=== PATIENT | female | born 1955 | race Two or more races ===

== ENCOUNTER → 2019-03-04 | Outpatient (CLI) | payer MEDICARE, OTHER ==
[2019-03-04 17:33] LABS: ABSOLUTE EOSINOPHILS # (AUTO) 0.1 10^3/uL (0.0-0.6); ABSOLUTE MONOCYTES (AUTO) 0.4 10^3/uL (0.1-1.4); ABSOLUTE NEUT (AUTO) 10.5 10^3/uL (1.7-8.2); BASOPHILS % (AUTO) 0.4 % (0-2); EOSINOPHILS % (AUTO) 0.4 % (0-6); HEMATOCRIT 43.9 % (36.0-47.0); HEMOGLOBIN 15.1 g/dL (12.0-15.5); LYMPHOCYTES % (AUTO) 15.3 % (13-45); MEAN CORPUSCULAR HEMOGLOBIN 30.3 pg (27.0-33.4); MEAN CORPUSCULAR HGB CONC 34.4 g/dL (32.0-36.0); MEAN CORPUSCULAR VOLUME 88 fl (80-97); PLATELET COUNT 281 10^3/uL (150-450); RED BLOOD COUNT 4.98 10^6/uL (3.72-5.28); RED CELL DISTRIBUTION WIDTH 14.5 % (11.5-14.0); SEGMENTED NEUTROPHILS % (AUTO) 80.9 % (42-78); TOTAL CELLS COUNTED % (AUTO) 100 %
[2019-03-04 17:38] LABS: APPEARANCE,URINE CLOUDY; BILIRUBIN,URINE NEGATIVE (NEGATIVE); CALCIUM OXALATE CRYSTALS,URINE MANY /HPF; GLUCOSE, URINE NEGATIVE (NEGATIVE); KETONES,URINE NEGATIVE (NEGATIVE); LEUKOCYTE ESTERASE,URINE NEGATIVE (NEGATIVE); NITRITE,URINE NEGATIVE (NEGATIVE); PROTEIN,URINE NEGATIVE (NEGATIVE); URINE SPECIFIC GRAVITY 1.026; UROBILINOGEN,URINE NEGATIVE mg/dL (<2.0)
[2019-03-04 17:41] LABS: COLOR,URINE YELLOW
[2019-03-04 17:51] LABS: ALANINE AMINOTRANSFERASE 16 U/L (9-52); ALBUMIN 4.3 g/dL (3.5-5.0); ALKALINE PHOSPHATASE 41 U/L (38-126); ANION GAP 8 (5-19); ASPARTATE AMINO TRANSFERASE 15 U/L (14-36); BILIRUBIN,DIRECT 0.2 mg/dL (0.0-0.4); BILIRUBIN,TOTAL 0.4 mg/dL (0.2-1.3); BLOOD UREA NITROGEN 24 mg/dL (7-20); C-REACTIVE PROTEIN 14.6 mg/L (<10.0); CALCIUM 9.7 mg/dL (8.4-10.2); CARBON DIOXIDE 23 mmol/L (22-30); CHLORIDE 107 mmol/L (98-107); GLUCOSE 113 mg/dL (75-110); POTASSIUM 4.6 mmol/L (3.6-5.0); SODIUM 138.3 mmol/L (137-145); TOTAL PROTEIN 8.3 g/dL (6.3-8.2)
--- NOTE | 2019-03-04 17:52 | RADIOLOGY REPORT (SQ) ---
EXAM DESCRIPTION: CHEST PA/LATERAL COMPLETED DATE/TIME: 03/04/2019 5:14 pm REASON FOR STUDY: CHEST PAIN COMPARISON: 01/22/2016 EXAM PARAMETERS: NUMBER OF VIEWS: two views TECHNIQUE: Digital Frontal and Lateral radiographic views of the chest acquired. RADIATION DOSE: NA LIMITATIONS: none FINDINGS: LUNGS AND PLEURA: No opacities, masses or pneumothorax. No pleural effusion. MEDIASTINUM AND HILAR STRUCTURES: No masses or contour abnormalities. HEART AND VASCULAR STRUCTURES: Heart normal size. No evidence for failure. BONES: No acute findings. HARDWARE: None in the chest. OTHER: No other significant finding. IMPRESSION: NO SIGNIFICANT RADIOGRAPHIC FINDING IN THE CHEST. TECHNICAL DOCUMENTATION: JOB ID: [id number] [employer]- All Rights Reserved Reading location - IP/workstation name: [email or web address]
--- NOTE | 2019-03-04 17:59 | EKG REPORT ---
SEVERITY:- OTHERWISE NORMAL ECG - SINUS RHYTHM BORDERLINE RIGHT AXIS DEVIATION : Confirmed by: Shahnaz Valladares 04-Mar-2019 17:58:21
[2019-03-04 18:09] LABS: ERYTHROCYTE SEDIMENTATION RATE 44 mm/hr (0-30)
== END ==
LOC: OD 16:16
PROVIDERS: ATTEND Family Medicine
DX: J01.91 Acute recurrent sinusitis, unspecified (principal); R50.9 Fever, unspecified; J02.0 Streptococcal pharyngitis; R07.9 Chest pain, unspecified
CPT/HCPCS: 36415; 71046; 80053; 81001; 85025; 85652; 86060; 86140; 87040; 93005; 93010

== ENCOUNTER → 2019-03-04 | Outpatient (CLI) | payer MEDICARE, OTHER ==
--- NOTE | 2019-03-04 20:12 | RADIOLOGY REPORT (SQ) ---
EXAM DESCRIPTION: CT SINUSES LIMITED WITHOUT IV CONTRAST COMPLETED DATE/TME: 03/04/2019 17:24 CLINICAL HISTORY: 63 years, Female, J01.91 ACUTE RECURRENT SINUSITIS, UNSPECIFIED COMPARISON: Prior study from 02/20/2016 TECHNIQUE: Noncontrast CT of the sinuses was performed. Coronal and sagittal reformations were created. Images stored on PACS. All CT scanners at this facility use dose modulation, iterative reconstruction, and/or weight based dosing when appropriate to reduce radiation dose to as low as reasonably achievable (ALARA). [facility]: Dose Right [facility]: CareDose [facility]: Dose Right [facility]: Teradose 4D [facility]: Genalyte LIMITATIONS: None. FINDINGS: Limited evaluation of the brain parenchyma reveals no suspicious findings. Globes and orbits show no suspicious abnormality. The visualized portions of the bilateral parotid and submandibular glands appear normal. The oropharynx and nasopharynx appear normal as well. The mandible is intact. Medial and lateral pterygoid plates are intact. The zygomatic arches are intact. The nasal bone is intact. The nasal septum is deviated towards the left. Paranasal sinuses are overall clear. The ostiomeatal units are widely patent bilaterally. Visualized mastoid air cells are overall clear as well. IMPRESSION: No CT evidence of sinusitis. TECHNICAL DOCUMENTATION: Quality ID # [id number]: Final reports with documentation of one or more dose reduction techniques (e.g., Automated exposure control, adjustment of the mA and/or kV according to patient size, use of iterative reconstruction technique) copyright 2011 [employer]- All Rights Reserved
== END ==
LOC: RAD 17:23
PROVIDERS: ATTEND Family Medicine
DX: J01.91 Acute recurrent sinusitis, unspecified (principal); R07.9 Chest pain, unspecified
CPT/HCPCS: 70486

== ENCOUNTER 2019-03-05 23:46 | Inpatient (IN) | payer MEDICARE, OTHER ==
[2019-03-05] MEDS ORDERED: FAMOTIDINE INJ/PF 20 MG/2 ML SDV IV ONE (23:53)
[2019-03-05] MEDS ORDERED: EPINEPHRINE INJ/PF 1 MG/1 ML AMPULE IM ONE (23:53)
[2019-03-05] MEDS ORDERED: METHYLPREDNISOLONE INJ 125 MG/2 ML SDV IV ONE (23:53)
[2019-03-05] MEDS ORDERED: DIPHENHYDRAMINE HCL 50 MG/ML VIAL IV ONE (23:53)
--- NOTE | 2019-03-05 23:57 | ER Document Report ---
ED Medical Screen (RME) - General Chief Complaint: Swelling of Tongue Stated Complaint: SWOLLEN TONGUE Time Seen by Provider: 03/05/19 23:52 Primary Care Provider: CRISTHIAN MADERA MD [Primary Care Provider] - Follow up as needed Notes: 63-year-old with new onset tongue and throat swelling x 2 hours. Symptoms worsening, having difficulty swallowing and talking. No history of angioedema, not on an GRACE inhibitor (takes Coreg), recently started on azithromycin. TRAVEL OUTSIDE OF THE [place] IN LAST 30 DAYS: No - Related Data Allergies/Adverse Reactions: No Known Allergies Allergy (Unverified 05/01/12 23:21) Past Medical History - Past Medical History Cardiac Medical History: Reports: Hx Hypertension Pulmonary Medical History: Reports: Hx Asthma, Hx COPD Denies: Hx Tuberculosis Neurological Medical History: Reports: Hx Migraine GI Medical History: Reports: Hx Gastroesophageal Reflux Disease Musculoskeltal Medical History: Reports Hx Arthritis Past Surgical History: Denies: Hx Pacemaker - Immunizations Hx Diphtheria, Pertussis, Tetanus Vaccination: Yes Physical Exam - HEENT Mouth/Lips: Angioedema - Very large swollen tongue, lips unremarkable Pharynx: Other - Difficult to visualize because of very large swollen tongue Course - Re-evaluation Re-evalutation: Patient with obvious very swollen tongue, can swallow but reports some difficulty, muffled voice. Upgraded to level 1. Giving epinephrine and meds, placed on monitor in room immediately. I have greeted and performed a rapid initial assessment of this patient. A comprehensive ED assessment and evaluation of the patient, analysis of test results and completion of the medical decision making process will be conducted by additional ED providers. Doctor's Discharge - Discharge Referrals: CRISTHIAN MADERA MD [Primary Care Provider] - Follow up as needed
[2019-03-06] MEDS ORDERED: TRANEXAMIC ACID INJ/PF 1,000 MG/10 ML SDV IV ONE ×2 (00:01→00:06)
[2019-03-06] MEDS ORDERED: NORMAL SALINE 250 ML IV PRN (00:06)
[2019-03-06 00:44] LABS: ABSOLUTE EOSINOPHILS # (AUTO) 0.3 10^3/uL (0.0-0.6); ABSOLUTE LYMPHOCYTES (AUTO) 6.6 10^3/uL (0.5-4.7); ABSOLUTE MONOCYTES (AUTO) 0.8 10^3/uL (0.1-1.4); ABSOLUTE NEUT (AUTO) 5.8 10^3/uL (1.7-8.2); BASOPHILS % (AUTO) 0.4 % (0-2); EOSINOPHILS % (AUTO) 1.9 % (0-6); HEMATOCRIT 41.2 % (36.0-47.0); HEMOGLOBIN 14.1 g/dL (12.0-15.5); LYMPHOCYTES % (AUTO) 48.5 % (13-45); MEAN CORPUSCULAR HGB CONC 34.1 g/dL (32.0-36.0); MEAN CORPUSCULAR VOLUME 88 fl (80-97); MONOCYTES % (AUTO) 6.1 % (3-13); PLATELET COUNT 272 10^3/uL (150-450); RED BLOOD COUNT 4.68 10^6/uL (3.72-5.28); RED CELL DISTRIBUTION WIDTH 14.5 % (11.5-14.0); SEGMENTED NEUTROPHILS % (AUTO) 43.1 % (42-78); TOTAL CELLS COUNTED % (AUTO) 100 %; WHITE BLOOD COUNT 13.6 10^3/uL (4.0-10.5)
[2019-03-06 00:54] LABS: ALANINE AMINOTRANSFERASE 19 U/L (9-52); ALBUMIN 3.4 g/dL (3.5-5.0); ALKALINE PHOSPHATASE 35 U/L (38-126); ANION GAP 6 (5-19); ASPARTATE AMINO TRANSFERASE 17 U/L (14-36); BILIRUBIN,DIRECT 0.2 mg/dL (0.0-0.4); BILIRUBIN,TOTAL 0.3 mg/dL (0.2-1.3); BLOOD UREA NITROGEN 22 mg/dL (7-20); CALCIUM 9.1 mg/dL (8.4-10.2); CARBON DIOXIDE 21 mmol/L (22-30); CHLORIDE 111 mmol/L (98-107); GLUCOSE 130 mg/dL (75-110); POTASSIUM 4.3 mmol/L (3.6-5.0); SODIUM 137.5 mmol/L (137-145); TOTAL PROTEIN 6.8 g/dL (6.3-8.2)
[2019-03-06 01:45] LABS: INTERNATIONAL RATION (INR) 0.97; PROTHROMBIN TIME 13.4 SEC (11.4-15.4)
[2019-03-06 01:46] LABS: PARTIAL THROMBOPLASTIN TIME 27.5 SEC (23.5-35.8)
[2019-03-06] MEDS ORDERED: NORMAL SALINE 1000 ML 1,000 ML IV ONE (02:48)
[2019-03-06] MEDS ORDERED: IPRATROPIUM/ALBUTEROL 0.5-2.5 MG/3 ML AMPUL NEB PRN (02:49)
[2019-03-06] MEDS ORDERED: ACETAMINOPHEN 650 MG SUPP.RECT PR PRN (02:49)
[2019-03-06] MEDS ORDERED: DIPHENHYDRAMINE HCL 50 MG/ML VIAL IV PRN (02:51)
[2019-03-06] MEDS ORDERED: EPINEPHRINE INJ/PF 1 MG/1 ML AMPULE IM PRN (02:52)
[2019-03-06] MEDS ORDERED: METOPROLOL TARTRATE PF/INJ 5 MG/5 ML SDV IV PRN (02:54)
--- NOTE | 2019-03-06 02:54 | ER Document Report ---
Entered by ELIN OLGUIN SCRIBE 03/06/19 0005 Acting as scribe for:CHAPARRO ALVAREZ DO ED Oral Problem - General Chief Complaint: Swelling of Tongue Stated Complaint: SWOLLEN TONGUE Time Seen by Provider: 03/05/19 23:52 Mode of Arrival: Ambulatory Information source: Patient Notes: 63-year-old female who presents to the emergency department today with complaints of tongue swelling. Patient states that about 2144 she noticed that her tongue was swelling while she was watching TV. Patient denies any new medication usage or anything that she can think that she could be reacting to other than starting Zithromax 1 week ago for strep throat. Patient states she had similar but much less significant tongue swelling about a week ago so she took Benadryl and it went down and she was never seen for this. Patient denies being on lisinopril or other GRACE or ARB. Patient did have intermittent episodes similar to this in the remote past as well. TRAVEL OUTSIDE OF THE [place] IN LAST 30 DAYS: No - Related Data Allergies/Adverse Reactions: No Known Allergies Allergy (Unverified 05/01/12 23:21) Past Medical History - General Information source: Patient - Social History Smoking Status: Former Smoker Cigarette use (# per day): No Frequency of alcohol use: None Drug Abuse: None Lives with: Family Family History: Reviewed & Not Pertinent - Past Medical History Cardiac Medical History: Reports: Hx Hypertension Pulmonary Medical History: Reports: Hx Asthma, Hx COPD Neurological Medical History: Reports: Hx Migraine GI Medical History: Reports: Hx Gastroesophageal Reflux Disease Musculoskeletal Medical History: Reports Hx Arthritis - Immunizations Hx Diphtheria, Pertussis, Tetanus Vaccination: Yes Hx Pneumococcal Vaccination: 08/02/12 Review of Systems - Review of Systems Constitutional: No symptoms reported EENT: See HPI, Difficulty swallowing, Other - tongue swelling Cardiovascular: No symptoms reported Respiratory: See HPI, Short of breath Gastrointestinal: No symptoms reported Genitourinary: No symptoms reported Female Genitourinary: No symptoms reported Musculoskeletal: No symptoms reported Skin: No symptoms reported Hematologic/Lymphatic: No symptoms reported Neurological/Psychological: No symptoms reported -: Yes All other systems reviewed and negative Physical Exam - Vital signs Vitals: Temp Pulse Resp BP Pulse Ox 98.7 F 74 28 H 152/59 H 100 03/05/19 23:51 03/05/19 23:51 03/05/19 23:51 03/05/19 23:51 03/05/19 23:51 Interpretation: Hypertensive, Tachypneic - Notes Notes: PHYSICAL EXAM GENERAL: Alert. Voice sounds somewhat muffled. Mildly anxious HEAD: Normocephalic, atraumatic. EYES: Pupils equal, round, and reactive to light. Extraocular movements intact. ENT: Oral mucosa moist, tongue midline and grossly swollen but symmetric. Small amount of swelling beneath tongue without concern of Mikel's angina. Some pooling of secretions, dabbing at mouth with a washcloth. NECK: Full range of motion. Supple. Trachea midline. LUNGS: Clear to auscultation bilaterally, no wheezes, rales, or rhonchi. No respiratory distress. No stridor. HEART: Regular rate and rhythm. No murmurs, gallops, or rubs. EXTREMITIES: Moves all 4 extremities spontaneously. NEUROLOGICAL: Alert and oriented x3. Muffled speech. PSYCH: Normal affect, normal mood. SKIN: Warm and dry. Course - Re-evaluation Re-evalutation: 03/06/19 00:20 Patient has received Pepcid, Benadryl, Solu-Medrol and epinephrine, she is also in the process of receiving TXA. FFP has been ordered for presumed angioedema. Patient is rechecked and her tongue looks the same however she states she feels like she is breathing significantly better. 03/06/19 00:48 Patient rechecked, voice is less muffled, states she is having less trouble breathing, no respiratory distress, tongue is unchanged. 03/06/19 01:20 CBC shows leukocytosis with white count of 13.6, no anemia, CMP shows elevated chloride at 111, low CO2 at 21, BUN elevated mildly at 22, glucose is nonfasting and is 130, cardiac enzymes negative, blood type is a positive, EKG does not show any ischemia. 03/06/19 02:50 Swelling continues to decrease, patient is not having any difficulty swallowing her secretions anymore. FFP is infusing. Discussed patient with Dr. Valerio, who agrees to place the patient in the ICU in observation status for angioedema. I have left a message for Dr. Lakhani from anesthesia on their cell phone. No answer when I called the call room. Nursing offset plate preparation supervisor is going to call Bill the [employer] to have him call me. 03/06/19 03:20 spoke with DENZEL Davey occupational health technician, she is aware of the patient. Can be reached at [phone]. - Vital Signs Vital signs: Temp Pulse Resp BP Pulse Ox 98 F 78 13 129/82 H 97 03/06/19 04:18 03/06/19 03:34 03/06/19 03:59 03/06/19 03:59 03/06/19 03:59 - Laboratory Result Diagrams: 03/06/19 00:24 03/06/19 00:24 Laboratory results interpreted by me: 03/06/19 03/06/19 00:24 00:24 WBC 13.6 H RDW 14.5 H Lymphocytes % 48.5 H Absolute Lymphocytes 6.6 H Chloride 111 H Carbon Dioxide 21 L BUN 22 H Glucose 130 H Alkaline Phosphatase 35 L Albumin 3.4 L - EKG Interpretation by Me Additional EKG results interpreted by me: 03/06/19 01:20 EKG shows sinus rhythm at a rate of 65, normal axis, normal intervals, no ST segment elevations or depressions, no T wave inversions per my interpretation. Critical Care Note - Critical Care Note Total time excluding time spent on procedures (mins): 55 Discharge - Discharge Clinical Impression: Angioedema Qualifiers: Encounter type: initial encounter Qualified Code(s): T78.3XXA - Angioneurotic edema, initial encounter Condition: Fair Disposition: ADMITTED INPATIENT Admitting Provider: Teodoro (Hospitalist) Unit Admitted: ICU I personally performed the services described in the documentation, reviewed and edited the documentation which was dictated to the scribe in my presence, and it accurately records my words and actions.
[2019-03-06] MEDS: HEPARIN SOD (PORCINE) 5,000 UNIT/ML 1 ML SYRINGE SUBCUT SCH ×3 (05:17→21:05)
--- NOTE | 2019-03-06 05:26 | PDOC H&P ---
History of Present Illness Admission Date/PCP: 03/06/19 02:49 CRISTHIAN MADERA MD Patient complains of: Tongue swelling History of Present Illness: WESLY CEJA is a 63 year old female with a past medical history of rheumatoid arthritis on Humira, hypertension and COPD. Patient presents 1 week after the onset of widespread [place] area with severe pruritus which has subsequently resolved but over the last 6 hours have noticed numbness to her mouth and 2 hours of swelling of her tongue prompting to take Benadryl and evaluation in the emergency room. She receives IV epinephrine, Solu-Medrol, Pepcid without significant improvement requiring FFP and Tranexamic acid. She improves without stridor and able to swallow oral secretions and referred to the hospitalist for admission. Patient denies known trigger but was recently started on azithromycin and medication with well-documented adverse reaction for angioedema. Past Medical History Cardiac Medical History: Reports: Hypertension Pulmonary Medical History: Reports: Asthma, Chronic Obstructive Pulmonary Disease (COPD) Denies: Tuberculosis Neurological Medical History: Reports: Migraine GI Medical History: Reports: Gastroesophageal Reflux Disease Musculoskeltal Medical History: Reports: Arthritis Past Surgical History Past Surgical History: Denies: Pacemaker Social History Information Source: Patient Smoking Status: Never Smoker Frequency of Alcohol Use: None Hx Recreational Drug Use: No Drugs: None Hx Prescription Drug Abuse: No - Advance Directive Resuscitation Status: Full Code Family History Family History: Hypertension, Other - No angioedema Parental Family History Reviewed: Yes Children Family History Reviewed: Yes Sibling(s) Family History Reviewed.: Yes Medication/Allergy Home Medications: Carvedilol Phosphate [Coreg Cr] 30 mg PO 05/01/12 Fluticasone/Salmeterol [Advair 250-50 Diskus 28 dose] 1 puff IH DAILY 05/01/12 Montelukast Sodium [Singulair] 10 mg PO 05/01/12 Tiotropium [place] [Spiriva Handihaler 18 mcg/dose (30 Dose)] 1 puff IH DAILY 05/01/12 Allergies/Adverse Reactions: No Known Allergies Allergy (Unverified 05/01/12 23:21) Review of Systems Constitutional: ABSENT: chills, fever(s), headache(s), weight gain, weight loss Eyes: ABSENT: visual disturbances Ears: ABSENT: hearing changes Cardiovascular: ABSENT: chest pain, dyspnea on exertion, edema, orthropnea, palpitations Respiratory: ABSENT: cough, hemoptysis Gastrointestinal: ABSENT: abdominal pain, constipation, diarrhea, hematemesis, hematochezia, nausea, vomiting Genitourinary: ABSENT: dysuria, hematuria Musculoskeletal: ABSENT: joint swelling Integumentary: ABSENT: rash, wounds Neurological: ABSENT: abnormal gait, abnormal speech, confusion, dizziness, focal weakness, syncope Psychiatric: ABSENT: anxiety, depression, homidical ideation, suicidal ideation Endocrine: ABSENT: cold intolerance, heat intolerance, polydipsia, polyuria Hematologic/Lymphatic: ABSENT: easy bleeding, easy bruising Physical Exam Vital Signs: Temp Pulse Resp BP Pulse Ox 98 F 78 13 129/82 H 97 03/06/19 04:18 03/06/19 03:34 03/06/19 03:59 03/06/19 03:59 03/06/19 03:59 Intake & Output 03/04/19 03/05/19 03/06/19 11:59 11:59 11:59 Intake Total 361 Balance 361 Weight 84.1 kg General appearance: PRESENT: no acute distress, well-developed, well-nourished Head exam: PRESENT: atraumatic, normocephalic Eye exam: PRESENT: conjunctiva pink, EOMI, PERRLA. ABSENT: scleral icterus Ear exam: PRESENT: normal external ear exam Mouth exam: PRESENT: moist, tongue midline Neck exam: ABSENT: carotid bruit, JVD, lymphadenopathy, thyromegaly Respiratory exam: PRESENT: clear to auscultation jovanny. ABSENT: rales, rhonchi, wheezes Cardiovascular exam: PRESENT: RRR. ABSENT: diastolic murmur, rubs, systolic mu rmur Pulses: PRESENT: normal dorsalis pedis pul Vascular exam: PRESENT: normal capillary refill GI/Abdominal exam: PRESENT: normal bowel sounds, soft. ABSENT: distended, guarding, mass, organolmegaly, rebound, tenderness Rectal exam: PRESENT: deferred Extremities exam: PRESENT: full ROM. ABSENT: calf tenderness, clubbing, pedal edema Neurological exam: PRESENT: alert, awake, oriented to person, oriented to place, oriented to time, oriented to situation, CN II-XII grossly intact. ABSENT: motor sensory deficit Psychiatric exam: PRESENT: appropriate affect, normal mood. ABSENT: homicidal ideation, suicidal ideation Skin exam: PRESENT: dry, intact, warm. ABSENT: cyanosis, rash Results Laboratory Results: 03/06/19 00:24 03/06/19 00:24 03/06/19 03/06/19 03/06/19 00:24 00:24 00:24 WBC 13.6 H RBC 4.68 Hgb 14.1 Hct 41.2 MCV 88 MCH 30.0 MCHC 34.1 RDW 14.5 H Plt Count 272 Seg Neutrophils % 43.1 Lymphocytes % 48.5 H Monocytes % 6.1 Eosinophils % 1.9 Basophils % 0.4 Absolute Neutrophils 5.8 Absolute Lymphocytes 6.6 H Absolute Monocytes 0.8 Absolute Eosinophils 0.3 Absolute Basophils 0.0 Sodium 137.5 Potassium 4.3 Chloride 111 H Carbon Dioxide 21 L Anion Gap 6 BUN 22 H Creatinine 0.74 Est GFR ( Amer) > 60 Est GFR (Non-Af Amer) > 60 Glucose 130 H Calcium 9.1 Total Bilirubin 0.3 AST 17 ALT 19 Alkaline Phosphatase 35 L Total Protein 6.8 Albumin 3.4 L Blood Type A POSITIVE 03/06/19 00:24 Troponin I < 0.012 Assessment and Plan - Diagnosis (1) Angioedema Qualifiers: Encounter type: initial encounter Qualified Code(s): T78.3XXA - Angioneurotic edema, initial encounter Is this a current diagnosis for this admission?: Yes Plan: Likely allergic cause of angioedema following exposure to azithromycin. Patient education for avoidance, continue observation for rebound in addition to Benadryl, glucocorticoid, epinephrine as needed - Time Time Spent with patient: 35 or more minutes - Inpatient Certification Medical Necessity: Need Close Monitoring Due to Risk of Patient Decompensation
[2019-03-06] MEDS ORDERED: METHYLPREDNISOLONE INJ 125 MG/2 ML SDV IV SCH ×2 (06:00→14:00)
[2019-03-06] MEDS: FAMOTIDINE INJ/PF 20 MG/2 ML SDV IV SCH ×2 (09:51→21:06)
[2019-03-06] MEDS ORDERED: PHARMACY COMMUNICATION ORDER MC NR (11:15)
[2019-03-06] MEDS: METHYLPREDNISOLONE INJ 40 MG/1 ML SDV IV SCH ×2 (13:11→21:06)
--- NOTE | 2019-03-06 13:15 | EKG REPORT ---
SEVERITY:- BORDERLINE ECG - SINUS RHYTHM PROBABLE LEFT ATRIAL ABNORMALITY BORDERLINE RIGHT AXIS DEVIATION : Confirmed by: Shahnaz Valladares 06-Mar-2019 13:15:01
[2019-03-06 18:37] VITALS: BP 137/64
[2019-03-06] MEDS ORDERED: ADVAIR IH SCH (22:00)
[2019-03-07] MEDS ORDERED: SPIRIVA IH SCH (10:00)
--- NOTE | 2019-03-07 16:39 | Left Against Medical Advice ---
Against Medical Advice Admission Date/Time: 03/06/19 02:49 Primary Care Provider: CRISTHIAN MADERA MD Date of Patient Emigration: 03/06/19 - Diagnosis: (1) Angioedema Is this a current diagnosis for this admission?: Yes - Summary: Summary: Please see Admission and Progress Notes as well. WESLY CEJA is a 63 F, who LEFT AGAINST MEDICAL ADVICE. The Patient was admitted on 03/06/19 02:49. Patient left AMA on the same day of discharge. She was seen on morning rounds yesterday and explained the plan of care including continuing steroids for yesterday. Her home meds were also resumed. She expressed she wanted to be go home and says she does not really like staying in hospitals. She was assured and advised against the risks of going AMA and she decided to stay yesterday. Also discussed with Dr. Madera that she was on clindamycin not azithromycin, that her losartan was also recently stopped. Apparently patient left AMA later last night. Noted nursing note that she left AMA around 9:30 pm last night and that home energy auditor was made aware.
== END 2019-03-06 21:38 | disposition left against medical advice (07) | DRG 916 ==
LOC: ER 23:46 → EH 03-06 02:49 → ICU 03-06 04:50
PROVIDERS: ADMIT Internal Medicine; ATTEND Internal Medicine
DX: T78.3XXA Angioneurotic edema, initial encounter (principal); M06.9 Rheumatoid arthritis, unspecified; I10 Essential (primary) hypertension; K21.9 Gastro-esophageal reflux disease without esophagitis; M19.90 Unspecified osteoarthritis, unspecified site; T36.8X5A Adverse effect of other systemic antibiotics, initial encounter; Z79.899 Other long term (current) drug therapy
CPT/HCPCS: 36415; 36430; 70486; 71046; 80053; 81001; 84484; 85025; 85610; 85652; 85730; 86060; 86140; 86160; 86161; 86900; 86901; 87040; 93005; 93010; 96372; 96374; 96375; 99291; J0171; J1200; J1644; J2920; J2930; J3490; J7030; P9017; S0028

== ENCOUNTER → 2019-06-11 | Outpatient (CLI) | payer MEDICARE, OTHER ==
--- NOTE | 2019-06-11 17:06 | RADIOLOGY REPORT (SQ) ---
EXAM DESCRIPTION: CHEST PA/LATERAL COMPLETED DATE/TIME: 06/11/2019 4:54 pm REASON FOR STUDY: PNEUMONIA, UNSPECIFIED COMPARISON: 03/04/2019 EXAM PARAMETERS: NUMBER OF VIEWS: two views TECHNIQUE: Digital Frontal and Lateral radiographic views of the chest acquired. RADIATION DOSE: NA LIMITATIONS: none FINDINGS: LUNGS AND PLEURA: No opacities, masses or pneumothorax. No pleural effusion. MEDIASTINUM AND HILAR STRUCTURES: No masses or contour abnormalities. HEART AND VASCULAR STRUCTURES: Heart normal size. No evidence for failure. BONES: No acute findings. HARDWARE: None in the chest. OTHER: No other significant finding. IMPRESSION: NO SIGNIFICANT RADIOGRAPHIC FINDING IN THE CHEST. TECHNICAL DOCUMENTATION: JOB ID: [id number] [employer]- All Rights Reserved Reading location - IP/workstation name: [email or web address]
[2019-06-11 17:43] LABS: ABSOLUTE EOSINOPHILS # (AUTO) 0.5 10^3/uL (0.0-0.6); ABSOLUTE LYMPHOCYTES (AUTO) 4.3 10^3/uL (0.5-4.7); ABSOLUTE MONOCYTES (AUTO) 0.8 10^3/uL (0.1-1.4); ABSOLUTE NEUT (AUTO) 4.4 10^3/uL (1.7-8.2); BASOPHILS % (AUTO) 0.4 % (0-2); EOSINOPHILS % (AUTO) 4.7 % (0-6); HEMATOCRIT 42.2 % (36.0-47.0); HEMOGLOBIN 14.1 g/dL (12.0-15.5); LYMPHOCYTES % (AUTO) 43.3 % (13-45); MEAN CORPUSCULAR HEMOGLOBIN 29.3 pg (27.0-33.4); MEAN CORPUSCULAR HGB CONC 33.5 g/dL (32.0-36.0); MEAN CORPUSCULAR VOLUME 88 fl (80-97); MONOCYTES % (AUTO) 7.8 % (3-13); PLATELET COUNT 294 10^3/uL (150-450); RED BLOOD COUNT 4.82 10^6/uL (3.72-5.28); RED CELL DISTRIBUTION WIDTH 14.2 % (11.5-14.0); SEGMENTED NEUTROPHILS % (AUTO) 43.8 % (42-78); TOTAL CELLS COUNTED % (AUTO) 100 %
[2019-06-11 18:09] LABS: ALANINE AMINOTRANSFERASE 24 U/L (9-52); ALBUMIN 4.1 g/dL (3.5-5.0); ALKALINE PHOSPHATASE 32 U/L (38-126); ANION GAP 6 (5-19); ASPARTATE AMINO TRANSFERASE 27 U/L (14-36); BILIRUBIN,DIRECT 0.3 mg/dL (0.0-0.4); BILIRUBIN,TOTAL 0.5 mg/dL (0.2-1.3); BLOOD UREA NITROGEN 18 mg/dL (7-20); CALCIUM 9.3 mg/dL (8.4-10.2); CARBON DIOXIDE 26 mmol/L (22-30); CHLORIDE 106 mmol/L (98-107); GLUCOSE 97 mg/dL (75-110); POTASSIUM 4.2 mmol/L (3.6-5.0); TOTAL PROTEIN 7.7 g/dL (6.3-8.2)
== END ==
LOC: OD 16:06
PROVIDERS: ATTEND Family Medicine
DX: J18.9 Pneumonia, unspecified organism (principal)
CPT/HCPCS: 36415; 71046; 80053; 85025; 87040

== ENCOUNTER → 2019-07-21 | Outpatient (CLI) | payer MEDICARE, OTHER ==
--- NOTE | 2019-07-21 14:39 | RADIOLOGY REPORT (SQ) ---
EXAM DESCRIPTION: CT FACIAL AREA WITHOUT COMPLETED DATE/TIME: 07/21/2019 2:22 pm REASON FOR STUDY: J01.00 ACUTE MAXILLARY SINUSITIS, UNSPECIFIED J01.00 ACUTE MAXILLARY SINUSITIS, U NSPECIFIED COMPARISON: None. TECHNIQUE: Noncontrasted images through the facial bones and orbits windowed for bone and soft tissu e. Additional coronal and sagittal reconstructed images reviewed. All images stored on PACS. All CT scanners at this facility use dose modulation, iterative reconstruction, and/or weight based d osing when appropriate to reduce radiation dose to as low as reasonably achievable (ALARA). [facility]: Dose Right [facility]: CareDose [facility]: Dose Right [facility]: Teradose 4D [facility]: [employer] RADIATION DOSE: mGy. LIMITATIONS: None. FINDINGS: FACIAL BONES: No fracture or bone lesion. ORBITS: Intact. No fracture. Symmetric intact globes and retroorbital soft tissues. PARANASAL SINUSES: Clear. No significant mucosal thickening, mass or fluid. No nasal polyps. Both o stiomeatal units appear occluded. SOFT TISSUES: No mass or edema. INFERIOR BRAIN: Limited view. No acute findings. OTHER: No other significant finding. IMPRESSION: No mucosal thickening or air-fluid levels. Both ostiomeatal units appear occluded. TECHNICAL DOCUMENTATION: JOB ID: [id number] Quality ID # [id number]: Final reports with documentation of one or more dose reduction techniques (e.g., Au tomated exposure control, adjustment of the mA and/or kV according to patient size, use of iterative reconstruction technique) 2010 [employer]- All Rights Reserved Reading location - IP/workstation name: [email or web address]
== END ==
LOC: RAD 14:08
PROVIDERS: ATTEND Family Medicine
DX: J01.00 Acute maxillary sinusitis, unspecified (principal)
CPT/HCPCS: 70486

== ENCOUNTER → 2019-11-05 | Outpatient (CLI) | payer MEDICARE, OTHER ==
--- NOTE | 2019-11-05 16:41 | RADIOLOGY REPORT (SQ) ---
EXAM DESCRIPTION: MRI LUMBAR SPINE WITHOUT COMPLETED DATE/TIME: 11/05/2019 4:20 pm REASON FOR STUDY: M51.16 M51.16 INTERVERTEBRAL DISC DISORDERS W RADICULOPATHY, LUMBAR COMPARISON: 07/12/2015 TECHNIQUE: Sagittal and Axial imaging includes T1, T2, STIR and gradient echo sequences. Coronal T2/ HASTE imaging. LIMITATIONS: None. FINDINGS: VISUALIZED UPPER ABDOMEN: Limited evaluation. No acute or suspicious findings suggested. SEGMENTATION: No transitional anatomy. The lowest well-developed disc space is labeled L5-S1. ALIGNMENT: Anatomic. VERTEBRAE: Intact. BONE MARROW: Marrow signal is normal. There is a single lipoma in the body of L2. DISC SIGNAL: Loss of normal water signal throughout the lumbar spine consistent with desiccation. Di sc heights are well maintained. POSTERIOR ELEMENTS: Generally intact. No pars defect evident. HARDWARE: None in the spine. CORD AND CONUS: Normal in size and signal intensity. Conus at the appropriate level. SOFT TISSUES: No aortic aneurysm seen. No bulky retroperitoneal adenopathy or mass. No paraspinal mas s or fluid. L1-L2: No significant spinal stenosis or exit foraminal stenosis. L2-L3: No significant spinal stenosis or exit foraminal stenosis. L3-L4: Broad-based disc/ osteophyte complex with facet arthropathy. Mild bilateral foraminal narrowi ng. L4-L5: Broad-based disc/ osteophyte complex with facet arthropathy. This results in moderate central canal narrowing. Mild asymmetric narrowing of the right neural foramina. L5-S1: There is broad-based annular disc bulging. No significant central stenosis. There is bilater al moderate lateral recess stenosis. LOWER THORACIC: Incompletely imaged. No stenosis seen. SACRUM: Visualized upper sacrum intact. OTHER: No other significant findings. IMPRESSION: 1. Disc/osteophyte complex at L3-L4 with mild bilateral foraminal narrowing. 2. Broad-based disc/ osteophyte complex at L4-5. There is bilateral facet arthropathy. This result s in moderate central canal narrowing in asymmetric narrowing of the right neural foramina. 3. Moderate bilateral lateral recess stenosis at L5-S1. TECHNICAL DOCUMENTATION: JOB ID: [id number]- All Rights Reserved Reading location - IP/workstation name: [email or web address]
== END ==
LOC: RAD 15:14
PROVIDERS: ATTEND Family Medicine
DX: M51.16 Intervertebral disc disorders with radiculopathy, lumbar region (principal); M48.07 Spinal stenosis, lumbosacral region
CPT/HCPCS: 72148

== ENCOUNTER → 2020-01-26 | Outpatient (CLI) | payer MEDICARE, OTHER ==
[2020-01-26 16:12] LABS: URINE AMPHETAMINES SCREEN NEGATIVE; URINE BARBITURATES SCREEN NEGATIVE; URINE BENZODIAZEPINES SCREEN NEGATIVE; URINE COCAINE SCREEN NEGATIVE; URINE MARIJUANA (THC) SCREEN NEGATIVE; URINE METHADONE SCREEN NEGATIVE; URINE PHENCYCLIDINE SCREEN NEGATIVE
--- NOTE | 2020-01-26 16:22 | RADIOLOGY REPORT (SQ) ---
EXAM DESCRIPTION: RIBS RIGHT W/PA CHEST COMPLETED DATE/TIME: 01/26/2020 3:59 pm REASON FOR STUDY: FALL Z79.891 EDITOR INDEX (CURRENT) USE OF OPIATE ANALGESIC COMPARISON: None. TECHNIQUE: Frontal view of the chest and additional views of the right ribs acquired. NUMBER OF VIEWS: Five view. LIMITATIONS: None. FINDINGS: FRONTAL CXR: No pneumothorax. No pleural effusion. No atelectasis or infiltrates. RIBS: No displaced rib fractures. No lytic or blastic bony lesions. OTHER: No other significant finding. IMPRESSION: NO PNEUMOTHORAX. NO DISPLACED RIB FRACTURES. COMMENT: SITE OF TRAUMA/COMPLAINT MARKED/STAMP COMPLETED: YES. TECHNICAL DOCUMENTATION: JOB ID: [id number] 2010 [employer]- All Rights Reserved Reading location - IP/workstation name: [email or web address]
--- NOTE | 2020-01-26 16:23 | RADIOLOGY REPORT (SQ) ---
EXAM DESCRIPTION: FACIAL BONES COMPLETED DATE/TIME: 01/26/2020 3:59 pm REASON FOR STUDY: FALL Z79.891 [employer]OPER TRADING [employer]S (CURRENT) USE OF OPIATE ANALGESIC COMPARISON: None. NUMBER OF VIEWS: Three view. TECHNIQUE: Images of the facial bones acquired. LIMITATIONS: None. FINDINGS: ORBITS: No fracture. No foreign body. SINUSES: No mucosal thickening. No air fluid levels. FACIAL BONES: No fracture. OTHER: No other significant finding. IMPRESSION: NO FOREIGN BODY OR FRACTURE OF THE FACIAL BONES. TECHNICAL DOCUMENTATION: JOB ID: [id number] 2010 [employer]- All Rights Reserved Reading location - IP/workstation name: [email or web address]
== END ==
LOC: OD 14:38
PROVIDERS: ATTEND Family Medicine
DX: Z04.3 Encounter for examination and observation following other accident (principal); W01.198A Fall on same level from slipping, tripping and stumbling with subsequent striking against other object, initial encounter; Z51.81 Encounter for therapeutic drug level monitoring; Z79.891 Long term (current) use of opiate analgesic
CPT/HCPCS: 70150; 80307

== ENCOUNTER → 2020-01-26 | Outpatient (CLI) | payer MEDICARE, OTHER ==
--- NOTE | 2020-01-26 16:24 | RADIOLOGY REPORT (SQ) ---
EXAM DESCRIPTION: L SPINE FLEX/EXT ONLY COMPLETED DATE/TIME: 01/26/2020 3:59 pm REASON FOR STUDY: LUMBAR STENOSIS WITH NEUROGENIC CLAUDICATION M48.062 SPINAL STENOSIS, LUMBAR SHEERE ON WITH NEUROGENIC JOSE COMPARISON: None. NUMBER OF VIEWS: Two view. TECHNIQUE: Lateral views of the lumbar spine with flexion and extension. LIMITATIONS: None. FINDINGS: MINERALIZATION: Normal. SEGMENTATION: Normal. No transitional anatomy. ALIGNMENT: Minimal L3-4 and L4-5 grade 1 listhesis. FLEXION/EXTENSION: No abnormal motion. VERTEBRAE: Maintained height. No fracture or worrisome bone lesion. DISCS: Disc space narrowing at the lowest 3 levels with mild osteophytes. POSTERIOR ELEMENTS: Pedicles and facets are intact. No pars defect or posterior arch defects. HARDWARE: None in the spine. OTHER: Dense aortic calcification without gross aneurysm detected. IMPRESSION: Spondylosis. No abnormal motion. NO INSTABILITY ON FLEXION/EXTENSION. TECHNICAL DOCUMENTATION: JOB ID: [id number] 2010 [employer]- All Rights Reserved Reading location - IP/workstation name: [email or web address]
--- NOTE | 2020-01-26 16:25 | RADIOLOGY REPORT (SQ) ---
EXAM DESCRIPTION: LUMBAR SPINE 2 VIEWS COMPLETED DATE/TIME: 01/26/2020 3:59 pm REASON FOR STUDY: LUMBAR STENOSIS WITH NEUROGENIC CLAUDICATION M48.062 SPINAL STENOSIS, LUMBAR SHEREE ON WITH NEUROGENIC JOSE COMPARISON: None. NUMBER OF VIEWS: Two views. TECHNIQUE: AP and lateral radiographic images acquired of the lumbar spine with the patient position ed upright. LIMITATIONS: None. FINDINGS: MINERALIZATION: Normal. SEGMENTATION: Normal. No transitional anatomy. ALIGNMENT: Very slight convex left scoliotic curve. Minimal grade 1 listhesis vertically at L4-5. T o a lesser extent L3-4. VERTEBRAE: Maintained height. No fracture or worrisome bone lesion. DISCS: Multilevel disc space narrowing with small osteophytes. POSTERIOR ELEMENTS: Facet arthropathy. No defects detected. HARDWARE: None in the spine. PARASPINAL SOFT TISSUES: Moderate stool. Dense aortic calcification without gross aneurysm. PELVIS: Intact as visualized. No fractures or worrisome bone lesions. SI joints intact. OTHER: No other significant finding. IMPRESSION: Spondylosis. TECHNICAL DOCUMENTATION: JOB ID: [id number] 2010 [employer]- All Rights Reserved Reading location - IP/workstation name: [email or web address]
== END ==
LOC: OD 14:43
PROVIDERS: ATTEND Nurse Practitioner Family
DX: M48.062 Spinal stenosis, lumbar region with neurogenic claudication (principal); M47.896 Other spondylosis, lumbar region
CPT/HCPCS: 72100; 72120

== ENCOUNTER → 2020-02-10 | Outpatient (CLI) | payer MEDICARE, OTHER ==
--- NOTE | 2020-02-10 16:13 | RADIOLOGY REPORT (SQ) ---
EXAM DESCRIPTION: VENOUS BILATERAL UPPER COMPLETED DATE/TIME: 02/10/2020 3:59 pm REASON FOR STUDY: ACUTE THROMBOSIS OF SUPERIOR VENA CAVA I82.210 ACUTE EMBOLISM AND THROMBOSIS OF S UPERIOR VENA CAVA COMPARISON: None. TECHNIQUE: Dynamic and static humphries scale and color images acquired of the right and left arm venous system. Selected spectral images acquired with additional compression and augmentation maneuvers. The contralateral subclavian vein and internal jugular vein were also imaged. Images stored on PACS. LIMITATIONS: None. FINDINGS: INTERNAL JUGULAR VEIN: Normal phasicity, compression, augmentation. No visualized echogeni c material on humphries scale. No defects on color images. Comparison opposite side normal. SUBCLAVIAN VEIN: Normal compression, augmentation. No visualized echogenic material on humphries scale. No defects on color images. AXILLARY VEIN: Normal compression, augmentation. No visualized echogenic material on humphries scale. No d efects on color images. BRACHIAL VEIN: Normal compression, augmentation. No visualized echogenic material on humphries scale. No d efects on color images. BASILIC VEIN: Normal compression, augmentation. No visualized echogenic material on humphries scale. No de fects on color images. CEPHALIC VEIN: Normal compression, augmentation. No visualized echogenic material on humphries scale. No d efects on color images. OTHER: No other significant finding. CONTRALATERAL SUBCLAVIAN VEIN AND INTERNAL JUGULAR VEIN: Normal phasicity, compression and augmentation. No visualized echogenic material on humphries scale. No de fects on color images. IMPRESSION: NO EVIDENCE DVT OR SVT RIGHT OR LEFT ARM. TECHNICAL DOCUMENTATION: JOB ID: [id number] 2010 [employer]- All Rights Reserved Reading location - IP/workstation name: [email or web address]
== END ==
LOC: SP 14:43
PROVIDERS: ATTEND Family Medicine
DX: I82.210 Acute embolism and thrombosis of superior vena cava (principal)
CPT/HCPCS: 93970